=== PATIENT | female | born 1935 | race Caucasian/White ===

== ENCOUNTER 2017-10-21 10:48 | Observation (INO) | payer OTHER ==
--- NOTE | 2017-10-21 11:07 | PDOC ---
History of Present Illness - General Chief Complaint: Pain Stated Complaint: LEFT LEG PAIN Time Seen by Provider: 10/21/17 10:53 History Source: Patient Exam Limitations: No Limitations - History of Present Illness Initial Comments: 10/21/17 11:01 Ms Banerjee is an 82 yo F who presents to the ER via EMS due to difficulty walking She has a h/o Spinal stenosis, Chronic lower extremity DVT, recurrent UTI, PUD, osteoarthritis, spinal stenosis She was admitted to an outside hospital for what is being described as cellulitis and sepsis. She was treated and sent to [facility] She was initially able to stand for short periods of time but was able to participate in seated leg exercises up until this past thursday Two days ago, she began to have severe left knee pain She is now unable to stand, she is unable to bend her knee She denies falls or direct trauma to the leg She denies fevers or chills Since being at the facility she has had 3 utis, was initially treated with Macrobid but now she is reportedly resistant to this and was switched to Keflex PMH: Spinal stenosis, Chronic UTI PSH: Meds: ALL: Asa, Cipro, Codeine, Prednisone Social: Denies drug or tobacco use FH: Non contributory GENERAL/CONSTITUTIONAL: No: fever, chills HEAD, EYES, EARS, NOSE AND THROAT: No: change in vision, ear pain, discharge, sore throat, throat swelling. CARDIOVASCULAR: No: chest pain, lightheadedness RESPIRATORY: No: cough, shortness of breath GASTROINTESTINAL: No: nausea, vomiting, diarrhea, abdominal pain GENITOURINARY: No: dysuria, hematuria, frequency, urgency, flank pain. MUSCULOSKELETAL: No: back pain, neck pain, joint pain, muscle swelling or pain SKIN AND BREASTS: No: lesions, pallor, rash or easy bruising. NEUROLOGIC: No: headache, vertigo, paresthesias, weakness ENDOCRINE: No: unexplained weight gain or loss HEMATOLOGIC/LYMPHATIC: No: anemia, easy bleeding, swelling nodes. GENERAL: The patient is in no acute distress. HEAD: Normal EYES: PERRLA, EOMI, sclera anicteric, conjunctiva clear. ENT: Ears normal, nares patent, oropharynx clear without exudates. Moist mucous membranes. NECK: Normal range of motion, supple without lymphadenopathy, JVD, or masses. LUNGS: Breath sounds equal, clear to auscultation bilaterally. No wheezes, and no crackles. HEART:Regular rate and rhythm, normal S1 and S2, ?KARON aotic position ABDOMEN: Soft, nontender, normoactive bowel sounds. No guarding, no rebound. EXTREMITIES: Pt able to move upper extremities Unable to lift left lower extremity, unable to bend knee Moves toes left leg NEUROLOGICAL: Cranial nerves II through XII grossly intact. Normal speech. No focal neurological deficits. MUSCULOSKELETAL: Severe left knee pain, unable to range left knee, (+) swelling through out the entire leg noted SKIN: No erythema, venous stasis changes noted in bilateral lower extremities 10/21/17 11:07 10/21/17 11:24 Past History - Past Medical History Allergies/Adverse Reactions: Allergies Allergy/AdvReac Type Severity Reaction Status Date / Time adhesive tape Allergy Intermediate Verified 10/21/17 11:10 aspirin Allergy Intermediate Rash Verified 10/21/17 11:05 ciprofloxacin [From Cipro] Allergy Intermediate Itching Verified 10/21/17 11:06 codeine Allergy Intermediate Rash Verified 10/21/17 11:06 pineapple Allergy Intermediate Verified 10/21/17 11:09 prednisone Allergy Intermediate Rash Verified 10/21/17 11:07 Sulfa (Sulfonamide Allergy Intermediate Rash Verified 10/21/17 11:07 Antibiotics) Home Medications: Ambulatory Orders Alprazolam [Xanax] 0.25 mg PO Q6H 10/21/17 Bupropion HCl [Bupropion Xl] 150 mg PO DAILY 10/21/17 Calcium Carb, Citrate/Vit D3 [Calcium + D3 ER Tablet] 1 tab PO DAILY 10/21/17 Cephalexin [Keflex] 500 mg PO BID 10/21/17 Cholecalciferol (Vitamin D3) [Vitamin D3] 5,000 unit PO DAILY 10/21/17 Cyanocobalamin [Vitamin B12 -] 100 mcg PO DAILY 10/21/17 Fentanyl 1 each TD ASDIR 10/21/17 Fexofenadine HCl 180 mg PO DAILY 10/21/17 Gabapentin 600 mg PO BID 10/21/17 Gabapentin 900 mg PO HS 10/21/17 Lactobacillus Acidophilus [Acidophilus] 1 each PO BID 10/21/17 Nystatin Powder [Nystop Powder -] 1 appful ASDIR 10/21/17 Polyethylene Glycol 3350 [Miralax 119 gm Btl -] 1 pack PO BID 10/21/17 Triamcinolone 0.5% Cream [Aristocort 0.5% Cream -] 1 appful BID 10/21/17 Warfarin Na [Coumadin] 2 mg PO DAILY 10/21/17 Warfarin Sodium [Coumadin] 2.5 mg PO DAILY 10/21/17 oxyCODONE SR [Oxycontin] 10 mg PO BID 10/21/17 ED Treatment Course - LABORATORY CBC & Chemistry Diagram: 10/21/17 12:46 10/21/17 12:46 - RADIOLOGY Radiology Studies Ordered: Category Date Time Status CHEST - PA [RAD] Stat Radiology 10/21/17 10:55 Ordered FEMUR-LEFT [RAD] Stat Radiology 10/21/17 10:55 Ordered KNEE 3 POS-LEFT [RAD] Stat Radiology 10/21/17 10:55 Ordered Medical Decision Making - Medical Decision Making 10/21/17 11:27 82 yo F who was admitted to rehab but in the past few days pt has had difficulty ambulating, bearing weight 10/21/17 15:48 Laboratory Tests 10/21/17 10/21/17 10/21/17 11:58 12:46 12:46 WBC 4.9 Hgb 15.5 H Hct 46.0 H Plt Count 164 INR 2.74 H BUN 23 H Creatinine 0.9 Urine Blood Urine Nitrite Ur Leukocyte Esterase 10/21/17 13:14 WBC Hgb Hct Plt Count INR BUN Creatinine Urine Blood Negative Urine Nitrite Negative Ur Leukocyte Esterase Negative Xrays attempted Pt unable to tolerate femur x rays Will place on observation *DC/Admit/Observation/Transfer Diagnosis at time of Disposition: Unable to walk Leg pain Qualifiers: Laterality: left Qualified Code(s): M79.605 - Pain in left leg - Discharge Dispostion Condition at time of disposition: Stable Decision to Admit order: Yes - Referrals - Patient Instructions - Post Discharge Activity
[2017-10-21 12:54] LABS: BASO % 1.1 % (0-2.0); EOS % 3.2 % (0-4.5); HEMOGLOBIN 15.5 GM/dl (10.7-15.3); LYMPH % 23.2 % (8-40); MCH 29.4 pg (25.7-33.7); MCHC 33.7 g/dl (32.0-36.0); MEAN CELL VOLUME 87.1 fl (80-96); MEAN PLT VOLUME 8.4 fl (7.5-11.1); MONO % 11.8 % (3.8-10.2); NEUT % 60.7 % (42.8-82.8); PLATELET COUNT 164 K/MM3 (134-434); RBC 5.29 M/mm3 (3.60-5.2); WHITE BLOOD COUNT 4.9 K/mm3 (4.0-10.8)
[2017-10-21] MEDS ORDERED: ALPRAZolam 0.25 MG TABLET PO PRN (12:54)
--- NOTE | 2017-10-21 12:54 | HP ---
CHIEF COMPLAINT: left lower extremity pain inability to ambulate PCP: Dr Snehal Rome ([facility]) HISTORY OF PRESENT ILLNESS:patient is a 82-year-old obese female, with a past medical history of chronic venous hypertension (idiopathic), depression, anxiety , phelbitis, DVT, chronic urinary tract infection (ecoli), polyneuropathy, spinal stenosis, and peptic ulcer disease. Daughter (Katharine) at bedside. Patient and daughter report left lower extremity cellulitis since July 2017. She was hospitalized for sepsis and cellulitis of the left lower extremity at [facility] and discharged to short-term rehabilitation at [facility]. patient reports ongoing pain to the left lower extremity and the inability to ambulate because she is unable to appear weight on the extremity. patient does report a twisting of the left knee while she was attempting to ambulate out of bed last week which exacerbated the pain. Patient denies falling upon the extremity. patient denies any paresthesia to the extremity. Of note, patient recently was diagnosed with a urinary tract infection ( Escherichia coli) and was started on Keflex 500 mg twice a day. ER course was notable for: (1)chest x-ray no evidence of pulmonary disease (2)WBC 4.9 (3)urinalysis negative leukocytes Recent Travel:none PAST MEDICAL HISTORY:see history of present illness PAST SURGICAL HISTORY:see history of present illness Social History:prior to admission at short-term rehabilitation patient resided at home alone, retired Smoking:none Alcohol:none Drugs: none Family History:noncontributory to this admission Allergies adhesive tape Allergy (Intermediate, Verified 10/21/17 11:10) aspirin Allergy (Intermediate, Verified 10/21/17 11:05) Rash ciprofloxacin [From Cipro] Allergy (Intermediate, Verified 10/21/17 11:06) Itching codeine Allergy (Intermediate, Verified 10/21/17 11:06) Rash pineapple Allergy (Intermediate, Verified 10/21/17 11:09) prednisone Allergy (Intermediate, Verified 10/21/17 11:07) Rash Sulfa (Sulfonamide Antibiotics) Allergy (Intermediate, Verified 10/21/17 11:07) Rash HOME MEDICATIONS: Home Medications Medication Instructions Recorded Alprazolam [Xanax] 0.25 mg PO Q6H 10/21/17 Bupropion HCl [Bupropion Xl] 150 mg PO DAILY 10/21/17 Calcium Carb, Citrate/Vit D3 1 tab PO DAILY 10/21/17 [Calcium + D3 ER Tablet] Cephalexin [Keflex] 500 mg PO BID 10/21/17 Cholecalciferol (Vitamin D3) 5,000 unit PO DAILY 10/21/17 [Vitamin D3] Cyanocobalamin [Vitamin B12 -] 100 mcg PO DAILY 10/21/17 Fentanyl 1 each TD ASDIR 10/21/17 Fexofenadine HCl 180 mg PO DAILY 10/21/17 Gabapentin 600 mg PO BID 10/21/17 Gabapentin 900 mg PO HS 10/21/17 Lactobacillus Acidophilus 1 each PO BID 10/21/17 [Acidophilus] Nystatin Powder [Nystop Powder -] 1 appful ASDIR 10/21/17 Polyethylene Glycol 3350 [Miralax 1 pack PO BID 10/21/17 119 gm Btl -] Triamcinolone 0.5% Cream 1 appful BID 10/21/17 [Aristocort 0.5% Cream -] Warfarin Na [Coumadin] 2 mg PO DAILY 10/21/17 Warfarin Sodium [Coumadin] 2.5 mg PO DAILY 10/21/17 oxyCODONE SR [Oxycontin] 10 mg PO BID 10/21/17 REVIEW OF SYSTEMS CONSTITUTIONAL: Absent: fever, chills, diaphoresis, generalized weakness, malaise, loss of appetite, weight change HEENT: Absent: rhinorrhea, nasal congestion, throat pain, throat swelling, difficulty swallowing, mouth swelling, ear pain, eye pain, visual changes CARDIOVASCULAR: Absent: chest pain, syncope, palpitations, irregular heart rate, lightheadedness , peripheral edema RESPIRATORY: Absent: cough, shortness of breath, dyspnea with exertion, orthopnea, wheezing, stridor, hemoptysis GASTROINTESTINAL: Absent: abdominal pain, abdominal distension, nausea, vomiting, diarrhea, constipation, melena, hematochezia GENITOURINARY: Absent: dysuria, frequency, urgency, hesitancy, hematuria, flank pain, genital pain MUSCULOSKELETAL: present: left lower extremity pain Absent: myalgia, arthralgia, joint swelling, back pain, neck pain SKIN: Absent: rash, itching, pallor HEMATOLOGIC/IMMUNOLOGIC: Absent: easy bleeding, easy bruising, lymphadenopathy, frequent infections ENDOCRINE: Absent: unexplained weight gain, unexplained weight loss, heat intolerance, cold intolerance NEUROLOGIC: Absent: headache, focal weakness or paresthesias, dizziness, unsteady gait, seizure, mental status changes, bladder or bowel incontinence PSYCHIATRIC: Absent: anxiety, depression, suicidal or homicidal ideation, hallucinations. PHYSICAL EXAMINATION Vital Signs - 24 hr 10/21/17 10:49 Temperature 98.7 F Pulse Rate 81 Respiratory 20 Rate Blood Pressure 155/63 O2 Sat by Pulse 97 Oximetry (%) GENERAL: Awake, alert, and fully oriented, in no acute distress. HEAD: Normal with no signs of trauma. EYES: Pupils equal, round and reactive to light, extraocular movements intact, sclera anicteric, conjunctiva clear. No lid lag. EARS, NOSE, THROAT: Ears normal, nares patent, oropharynx clear without exudates. Moist mucous membranes. NECK: Normal range of motion, supple without lymphadenopathy, JVD, or masses. LUNGS: Breath sounds equal, clear to auscultation bilaterally. No wheezes, and no crackles. No accessory muscle use. HEART: Regular rate and rhythm, normal S1 and S2 without murmur, rub or gallop. ABDOMEN: Soft, nontender, not distended, normoactive bowel sounds, no guarding, no rebound, no masses. No hepatomegaly or splenomegaly. MUSCULOSKELETAL: Normal range of motion at all joints. No bony deformities or tenderness. No CVA tenderness. UPPER EXTREMITIES: 2+ pulses, warm, well-perfused. No cyanosis. No clubbing. No peripheral edema. LOWER EXTREMITIES: 2+ pulses, warm, well-perfused. No calf tenderness. No peripheral edema, venous stasis changes to bilateral distal lower extremities LEFT LOWER EXTREMITY: point tenderness to anterior knee, no deformity no erythema noted, less than 3 second capillary refill NEUROLOGICAL: Cranial nerves II-XII intact. Normal speech. Normal gait. PSYCHIATRIC: Cooperative. Good eye contact. Appropriate mood and affect. SKIN: Warm, dry, normal turgor, no rashes or lesions noted, normal capillary refill. ASSESSMENT/PLAN: 1) MS left knee pain - X-ray of left knee reviewedmoderate degenerative changes noted no acute fracture noted. - Oxycodone for severe pain Tylenol for minimal pain continue fentanyl patch patient reports she has taking OxyContin in the past denies any adverse reaction - Appreciate input of orthopedist Dr. Lorenzana - physical therapy evaluation 2) cardiovascular chronic DVT - continue Coumadin home dose, inr is therepeutic 3) chronic urinary tract infection - urinalysis, pending urine culture,patient completed 7 days of keflex - f/u urine culture f/e/n - regular diet - replete electrolytes prn ppx - coumadin (therepeutic) - physical therapy evaluation - scd/baljinder - oob - pepcid dispo: pt requires obsv admission Visit type - Emergency Visit Emergency Visit: Yes ED Registration Date: 10/21/17 Care time: The patient presented to the Emergency Department on the above date and was hospitalized for further evaluation of their emergent condition. - New Patient This patient is new to me today: Yes Date on this admission: 10/21/17 - Critical Care Critical Care patient: No Hospitalist Screening - Colonoscopy Questionnaire Colonoscopy Questionnaire: Colonoscopy Questionnaire - Patient: 50 - 75 years old and never had a screening colonoscopy: No History of colon or rectal polyps, or CA: No History of IBD, Crohn's disease or UC: No History of abdominal radiation therapy as a child: No - Relative: 1 with colon or rectal CA, or polyps at age 60 or younger: No Colon or rectal CA diagnosed at age 45 or younger: No Multiple relatives with colon or rectal CA: No - Outcome: Screening Result: Negative Screen
[2017-10-21] MEDS ORDERED: NYSTATIN POWDER 100,000 UNITS/GM - 15 GM TOPICAL POWDER TP SCH (13:00)
[2017-10-21] MEDS ORDERED: FENTANYL TD SCH (13:00)
[2017-10-21 13:02] LABS: INR 2.74 (0.82-1.09); PROTHROMBIN TIME (PATIENT) 30.1 SEC (10.2-13.0)
[2017-10-21 13:11] LABS: ALBUMIN 3.3 g/dl (3.5-5.0); ALK PHOS 96 U/L (32-92); ANION GAP 6 (8-16); BILIRUBIN,TOTAL 0.6 mg/dl (0.2-1.0); BLOOD UREA NITROGEN 23 mg/dl (7-18); CALCIUM 9.3 mg/dl (8.4-10.2); CHLORIDE 101 mmol/L (98-107); CO2 31 mmol/L (22-28); CREATININE 0.9 mg/dl (0.6-1.3); GLUCOSE,RANDOM 107 mg/dl (74-106); POTASSIUM 4.1 mmol/L (3.5-5.1); SGOT/AST 21 U/L (10-42); SGPT/ALT 16 U/L (10-40); SODIUM 138 mmol/L (136-145); TOT PROT 6.5 g/dl (6.4-8.3); URIC ACID 6.3 mg/dl (2.6-7.2)
[2017-10-21 13:46] LABS: ERYTHROCYTE SEDIMENTATION RATE 16 mm/hr (0-30)
[2017-10-21] MEDS ORDERED: oxyCODONE HCL 5 MG TABLET PO PRN ×2 (14:03→22:23)
[2017-10-21] MEDS ORDERED: ACETAMINOPHEN 325 MG TABLET (FP) PO PRN (14:04)
[2017-10-21] MEDS ORDERED: FENTANYL PATCH WASTE TD PRN (14:18)
[2017-10-21] MEDS ORDERED: DOCUSATE SODIUM 100 MG CAPSULE (FP) PO PRN (14:18)
[2017-10-21 14:20] LABS: URINE BILIRUBIN Negative (NEGATIVE); URINE COLOR Amber; URINE GLUCOSE (UA) Negative (NEGATIVE); URINE KETONE Negative (NEGATIVE); URINE LEUK ESTERASE Negative (NEGATIVE); URINE NITRITE Negative (NEGATIVE); URINE PROTEIN Negative (NEGATIVE); URINE UROBILINOGEN 0.2 (0.2-1.0)
[2017-10-21 14:21] LABS: URINE APPEARANCE SL CLOUDY
[2017-10-21] MEDS ORDERED: fentaNYL 75mcg/hr PATCH.TD72 TD SCH (14:30)
[2017-10-21 16:13] VITALS: BMI 50.3
[2017-10-21] MEDS ORDERED: WARFARIN NA 2.5 MG TABLET (FP) PO ONE (18:00)
[2017-10-21] MEDS: WARFARIN NA 2 MG TABLET (UD) PO SCH (18:45)
[2017-10-21] MEDS: WARFARIN NA 2.5 MG TABLET (FP) PO SCH (18:45)
--- NOTE | 2017-10-21 22:24 | CONSULT ---
Consult - text type - Consultation Consultation Note: 82yo female with severe left knee OA, severe pain and ambulatory dysfunction for ~2 months worsening over the last 2 weeks until she was unable to ambulate. On warfarin for hx of DVT. Chart reviewed. Pt seen and examined. AVSS Selected Entries 10/21/17 10/21/17 22:00 22:35 Temperature 98.1 F Pulse Rate 74 Respiratory 19 Rate Blood Pressure 123/57 O2 Sat by Pulse 95 Oximetry (%) Oxygen Delivery Room Air Method Laboratory Tests 10/21/17 10/21/17 10/21/17 11:58 12:46 12:46 WBC 4.9 Hgb 15.5 H Hct 46.0 H Plt Count 164 ESR 16 PT with INR 30.1 H INR 2.74 H Sodium 138 Potassium 4.1 Chloride 101 Carbon Dioxide 31 H Anion Gap 6 L BUN 23 H Creatinine 0.9 Random Glucose 107 H C-Reactive Protein 0.4 H Gen: NAD, AAO LLE: skin intact, no cuts/abrasions. Chronic distal venous stasis changes. No severe joint effusion. Very stiff with palpable crepitus and severe pain with attempted ROM. Not TTP. No erythema or evidence of infection. No ligamentous laxity. NVID XR L knee - severe tricompartmental osteoarthritis A/P severe left knee OA, deconditioning 1. No evidence of septic joint or gouty attack. 2. After sterile skin preparation, the left knee was injected with lidocaine, marcaine, and 30mg toradol. The pt tolerated the procedure well. 3. Allergic to steroids. 4. PT/OOB - WBAT LLE 5. Recommend consult Dr. Sutton for evaluation of deconditioning. Possible component of spinal stenosis?
[2017-10-21] MEDS: POLYETHYLENE GLYCOL 3350 119 GM BTL PO SCH (22:25)
[2017-10-21] MEDS: CALCIUM (OYSTER SHELL) 500 MG TABLET (FP) PO SCH (22:26)
[2017-10-21] MEDS: GABAPENTIN 300 MG CAPSULE (FP) PO SCH (22:26)
[2017-10-21] MEDS: LACTOBACILLUS ACIDOPHILUS 1 TABLET PO SCH (22:26)
[2017-10-21] MEDS: FAMOTIDINE 20 MG TABLET PO SCH (22:27)
[2017-10-21] MEDS ORDERED: ACETAMINOPHEN 325 MG TABLET (FP) PO SCH ×2 (22:30→22:31)
[2017-10-21] MEDS ORDERED: traMADol HCL 50 MG TABLET PO SCH (22:30)
[2017-10-22] MEDS: TRIAMCINOLONE ACET 0.5% CREAM 15 GM TUBE TP SCH ×2 (00:17→22:05)
[2017-10-22] MEDS: traMADol HCL 50 MG TABLET PO SCH ×3 (00:18→12:50)
[2017-10-22] MEDS: GABAPENTIN 300 MG CAPSULE (FP) PO SCH ×4 (00:18→21:58)
[2017-10-22] MEDS: ACETAMINOPHEN 325 MG TABLET (FP) PO SCH ×2 (06:42→12:50)
--- NOTE | 2017-10-22 06:49 | PN ---
Physical Exam: SUBJECTIVE: Patient seen and examined, patient reports improvement of left knee pain after injection of lidocaine and Marcaine and Toradol by orthopedist Dr. Lorenzana, yesterday October 21, 2017. she reports being able to move the knee w/o pain. OBJECTIVE:patient is a 82-year-old obese female, with a past medical history of chronic venous hypertension (idiopathic), depression, anxiety, phelbitis, DVT, chronic urinary tract infection (ecoli), polyneuropathy, spinal stenosis, and peptic ulcer disease. she was admitted from the emergency department to observation for emergent condition Vital Signs Period Temp Pulse Resp BP Sys/Hair Pulse Ox Last 24 Hr 97.5 F-98.7 F 66-81 18-20 123-155/45-90 95-99 GENERAL: Awake, alert, and fully oriented, in no acute distress. HEAD: Normal with no signs of trauma. EYES: Pupils equal, round and reactive to light, extraocular movements intact, sclera anicteric, conjunctiva clear. No lid lag. EARS, NOSE, THROAT: Ears normal, nares patent, oropharynx clear without exudates. Moist mucous membranes. NECK: Normal range of motion, supple without lymphadenopathy, JVD, or masses. LUNGS: Breath sounds equal, clear to auscultation bilaterally. No wheezes, and no crackles. No accessory muscle use. HEART: Regular rate and rhythm, normal S1 and S2 without murmur, rub or gallop. ABDOMEN: Soft, nontender, not distended, normoactive bowel sounds, no guarding, no rebound, no masses. No hepatomegaly or splenomegaly. MUSCULOSKELETAL: Normal range of motion at all joints. No bony deformities or tenderness. No CVA tenderness. UPPER EXTREMITIES: 2+ pulses, warm, well-perfused. No cyanosis. No clubbing. No peripheral edema. LOWER EXTREMITIES: 2+ pulses, warm, well-perfused. No calf tenderness. No peripheral edema, venous stasis changes to bilateral distal lowerextremities right lower extremity, pain upon range of motion NEUROLOGICAL: Cranial nerves II-XII intact. Normal speech. Normal gait. PSYCHIATRIC: Cooperative. Good eye contact. Appropriate mood and affect. SKIN: Warm, dry, normal turgor, no rashes or lesions noted, normal capillary refill. Laboratory Results - last 24 hr 10/21/17 10/21/17 10/21/17 11:58 12:46 12:46 WBC 4.9 RBC 5.29 H Hgb 15.5 H Hct 46.0 H MCV 87.1 MCH 29.4 MCHC 33.7 RDW 13.0 Plt Count 164 MPV 8.4 Absolute Neuts (auto) 2.9 Neutrophils % 60.7 Lymphocytes % 23.2 Monocytes % 11.8 H Eosinophils % 3.2 Basophils % 1.1 ESR 16 PT with INR 30.1 H INR 2.74 H Sodium 138 Potassium 4.1 Chloride 101 Carbon Dioxide 31 H Anion Gap 6 L BUN 23 H Creatinine 0.9 Creat Clearance w eGFR 59.80 Random Glucose 107 H Uric Acid 6.3 Calcium 9.3 Total Bilirubin 0.6 AST 21 ALT 16 Alkaline Phosphatase 96 H C-Reactive Protein 0.4 H Total Protein 6.5 Albumin 3.3 L Urine Color Urine Appearance Urine pH Ur Specific [place] Urine Protein Urine Glucose (UA) Urine Ketones Urine Blood Urine Nitrite Urine Bilirubin Urine Urobilinogen Ur Leukocyte Esterase 10/21/17 10/21/17 13:14 14:09 WBC RBC Hgb Hct MCV MCH MCHC RDW Plt Count MPV Absolute Neuts (auto) Neutrophils % Lymphocytes % Monocytes % Eosinophils % Basophils % ESR PT with INR INR Sodium Potassium Chloride Carbon Dioxide Anion Gap BUN Creatinine Creat Clearance w eGFR Random Glucose Uric Acid 6.3 Calcium Total Bilirubin AST ALT Alkaline Phosphatase C-Reactive Protein Total Protein Albumin Urine Color [place] Urine Appearance Sl cloudy Urine pH 7.0 Ur Specific [place] 1.010 Urine Protein Negative Urine Glucose (UA) Negative Urine Ketones Negative Urine Blood Negative Urine Nitrite Negative Urine Bilirubin Negative Urine Urobilinogen 0.2 Ur Leukocyte Esterase Negative Active Medications Generic Name Dose Route Start Last Admin Trade Name Freq PRN Reason Stop Dose Admin Acetaminophen 650 mg 10/22/17 06:00 10/22/17 06:42 Tylenol - PO 650 mg Q6HPO JARED Administration Alprazolam 0.25 mg 10/21/17 12:54 Xanax - PO Q6H PRN ANXIETY Bupropion HCl 150 mg 10/22/17 10:00 Wellbutrin Xl - PO DAILY JARED Calcium Carbonate 500 mg 10/21/17 22:00 10/21/17 22:26 Os-Hever 500mg - PO 500 mg BID JARED Administration Cholecalciferol 5,000 unit 10/22/17 10:00 Vitamin D3 - PO DAILY [facility] Cyanocobalamin 100 mcg 10/22/17 10:00 Vitamin B12 - PO DAILY [facility] Docusate Sodium 100 mg 10/21/17 14:18 Colace - PO Q8H PRN CONSTIPATION Famotidine 20 mg 10/21/17 22:00 10/21/17 22:27 Pepcid - PO 20 mg BID [facility] Administration Fentanyl 1 patch 10/21/17 14:30 10/21/17 15:16 Duragesic 75mcg Patch - TD 1 patch Q72H JARED Administration Gabapentin 600 mg 10/21/17 22:00 10/22/17 00:18 Neurontin - PO Not Given BID [facility] Gabapentin 900 mg 10/21/17 22:00 10/21/17 22:26 Neurontin - PO 900 mg HS [facility] Administration Lactobacillus Acidophilus 1 tab 10/21/17 22:00 10/21/17 22:26 Bacid - PO 1 tab BID [facility] Administration Loratadine 10 mg 10/22/17 10:00 Claritin - PO DAILY [facility] Miscellaneous 1 each 10/21/17 14:18 Duragesic Patch Waste TD PRN PRN PAIN Nystatin 1 applic 10/22/17 10:00 Nystop Powder - TP DAILY [facility] Oxycodone HCl 5 mg 10/21/17 22:23 Roxicodone - PO 10/24/17 22:23 Q3H PRN PAIN LEVEL 1-5 Oxycodone HCl 10 mg 10/21/17 22:23 Roxicodone - PO 10/24/17 22:23 Q3H PRN PAIN LEVEL 6-10 Polyethylene Glycol 17 gm 10/21/17 22:00 10/21/17 22:25 Miralax (For Daily Use) - PO Not Given BID [facility] Tramadol HCl 50 mg 10/21/17 22:30 10/22/17 06:42 Ultram - PO 50 mg Q6HPO [facility] Administration Triamcinolone Acetonide 1 applic 10/21/17 22:00 10/22/17 00:17 Aristocort 0.5% Cream - TP Not Given BID [facility] Warfarin Sodium 2 mg 10/21/17 18:00 10/21/17 18:45 Coumadin - PO 2 mg [id number] [facility] Administration Warfarin Sodium 2.5 mg 10/21/17 18:00 10/21/17 18:45 Coumadin - PO 2.5 mg [id number] JARED Administration imaging X-ray of left knee: extensive arthritic changes noted Chest x-ray: No infiltration or effusion is noted ASSESSMENT/PLAN: 1) MS bilateral degenerative joint disease - patient evaluated by orthopedist Dr Lorenzana yesterday 10/21/2017, injection of lidocaine and Marcaine and Toradol to left knee completed by orthopedist patient reports improvement of left lower extremity pain - Continue oxycodone Ultram and fentanyl patch for pain - appreciate input of Physiatry Dr. Zepeda - Appreciate input of orthopedist Dr. Lorenzana - physical therapy evaluation 2) cardiovascular chronic DVT - continue Coumadin home dose, inr is therepeutic 3) chronic urinary tract infection - urinalysis no leukocytes noted, pending urine culture,patient completed 7 days of keflex - f/u urine culture f/e/n - regular diet - replete electrolytes prn ppx - coumadin (therepeutic) - physical therapy evaluation - scd/baljinder - oob - pepcid dispo: pt requires obsv admission Visit type - Emergency Visit Emergency Visit: Yes ED Registration Date: 10/21/17 Care time: The patient presented to the Emergency Department on the above date and was hospitalized for further evaluation of their emergent condition. - New Patient This patient is new to me today: No - Critical Care Critical Care patient: No - Discharge Referral Referred to [facility] Med [facility] No
[2017-10-22 08:57] LABS: ANION GAP 5 (8-16); BLOOD UREA NITROGEN 28 mg/dl (7-18); CALCIUM 9.4 mg/dl (8.4-10.2); CHLORIDE 101 mmol/L (98-107); CO2 31 mmol/L (22-28); CREATININE 1.2 mg/dl (0.6-1.3); GLUCOSE,RANDOM 106 mg/dl (74-106); MAGNESIUM 2.2 mg/dL (1.8-2.4); PHOSPHOROUS 4.5 mg/dl (2.5-4.6); POTASSIUM 4.5 mmol/L (3.5-5.1); SODIUM 137 mmol/L (136-145)
[2017-10-22 09:16] LABS: BASO % 0.9 % (0-2.0); HEMATOCRIT 42.3 % (32.4-45.2); LYMPH % 27.7 % (8-40); MCHC 33.2 g/dl (32.0-36.0); MEAN CELL VOLUME 87.6 fl (80-96); MEAN PLT VOLUME 8.3 fl (7.5-11.1); MONO % 14.8 % (3.8-10.2); NEUT % 52.6 % (42.8-82.8); PLATELET COUNT 145 K/MM3 (134-434); RBC 4.83 M/mm3 (3.60-5.2); RDW 13.2 % (11.6-15.6); WHITE BLOOD COUNT 4.1 K/mm3 (4.0-10.8)
[2017-10-22] MEDS ORDERED: PATIENT'S OWN MEDICATION (NON-FORMULARY) (Calcium Carb, Citrate/Vit D3 [Calcium + D3 Er Ta PO SCH (10:00)
[2017-10-22] MEDS: NYSTATIN POWDER 100,000 UNITS/GM - 15 GM TOPICAL POWDER TP SCH (10:20)
[2017-10-22] MEDS: LORATADINE 10 MG TABLET PO SCH (10:52)
[2017-10-22] MEDS: LACTOBACILLUS ACIDOPHILUS 1 TABLET PO SCH ×2 (10:52→21:59)
[2017-10-22] MEDS: POLYETHYLENE GLYCOL 3350 119 GM BTL PO SCH ×2 (10:53→22:09)
[2017-10-22] MEDS: CALCIUM (OYSTER SHELL) 500 MG TABLET (FP) PO SCH ×2 (10:54→21:59)
[2017-10-22] MEDS: FAMOTIDINE 20 MG TABLET PO SCH ×2 (10:54→21:59)
[2017-10-22] MEDS: CYANOCOBALAMIN (VITAMIN B-12) 100 MCG TABLET PO SCH (10:55)
[2017-10-22] MEDS: CHOLECALCIFEROL (VITAMIN D3) 1,000 UNIT TABLET (FP) PO SCH (10:55)
[2017-10-22] MEDS: oxyCODONE HCL 5 MG TABLET PO PRN ×2 (10:57→22:08)
--- NOTE | 2017-10-22 14:25 | EKG ---
Test Reason : Blood Pressure : / mmHG Vent. Rate : 084 BPM Atrial Rate : 084 BPM P-R Int : 186 ms QRS Dur : 090 ms QT Int : 372 ms P-R-T Axes : 040 -13 064 degrees QTc Int : 439 ms NORMAL SINUS RHYTHM NORMAL ECG NO PREVIOUS ECGS AVAILABLE Confirmed by ROSA BLACK MD ([id number]) on 10/22/2017 2:25:06 PM Referred By: RINA Confirmed By:ROSA BLACK MD
[2017-10-22] MEDS: WARFARIN NA 2.5 MG TABLET (FP) PO SCH (17:34)
[2017-10-22] MEDS: WARFARIN NA 2 MG TABLET (UD) PO SCH (17:34)
--- NOTE | 2017-10-22 21:15 | CONS ---
DATE OF CONSULTATION: 10/22/2017 REFERRING PHYSICIAN: Kit Vickers MD HISTORY OF PRESENT ILLNESS: The patient is an 82-year-old woman with extensive past medical history, which includes bilateral DVT, polyneuropathy, spinal stenosis, who was transferred from [facility] to [facility] with inability to ambulate. Patient apparently had been hospitalized in another institution, [facility] with sepsis and cellulitis from August 22 to about August 27. She was treated with IV antibiotics and transferred to [facility] for short-term rehab. She apparently was doing well, making progress, until the third week of September when she recalls trying to transfer into bed a different way than she previously had. Her left leg buckled or twisted and sine this time she has had increasing inability to ambulate. She was brought to [facility] and found to have a urinary tract infection at least recently. On admission, she underwent x-rays, which demonstrated osteoarthritis of the knees and hips. There were also vascular calcifications noted in the left femur. Patient was seen in orthopedic consultation by Dr. Alfonso Lorenzana and given a Toradol injection in her left knee, which has helped. She was seen by physical therapy and attempted to transfer, but now is having difficulty moving the right lower extremity. Patient has no complaints of upper extremity weakness, numbness, or tingling and was referred for rehabilitation and evaluation. She is also on pain medication and chronically on Warfarin for deep venous thrombosis, which occurred many years ago. PAST MEDICAL AND SURGICAL HISTORY: Review of past medical and surgical history , as above. She also has a history of hypertension, depression, phlebitis, anxiety, chronic urinary tract infection, peptic ulcer disease, increased BMI. SOCIAL HISTORY: Per the patient and her daughter, she was living by herself independently in an apartment. No steps to enter and walking as recently as mid to late September with assistance. She does not smoke tobacco or drink alcohol. REVIEW OF SYSTEMS: No headache. No lightheadedness or dizziness. No blurry vision or double vision. No nausea or vomiting, difficulty swallowing, difficulty chewing. No chest pain, shortness of breath, dyspnea on exertion, night orthopnea, wheezing. No abdominal discomfort. No distention. No bowel or bladder incontinence or retention. No frequency currently. She does have chronic skin changes in her lower extremities distally, which are hyperpigmented and slight swelling as well as some back pain at times, but no current numbness or tingling in her lower extremities. Pain is more in the right knee than the left knee. PHYSICAL EXAMINATION: General: The patient is an overweight woman, seen lying in bed. She is awake, alert, and oriented. She is cooperative with examination and seems to have good insight into her medical condition. HEENT: She is normocephalic and atraumatic. Her extraocular muscles appear intact. She has no obvious facial weakness. No oral ulcers. Poor dentition. Dry mucous membranes. Neck: Supple without any palpable spasm. Extremities: She has dysvascular changes in both lower extremities with hyperpigmentation and trace edema. No advanced pitting edema. No calf tenderness that is isolated. No other skin rash noted. Neuromuscular: She is awake, alert, oriented x3. Cranial nerves II-XII are grossly intact. Good strength and range in the upper extremities with some arthritic changes in the hands and mild weakness in hotel attendant, but otherwise good range. Normal sensation to pinprick throughout the upper and lower extremities. She is able to move the left lower extremity including the knee much better than the right lower extremity with severe pain noted in the right knee particularly, but fairly good dorsiflexion and plantarflexion. She has crepitus in the left knee, but the right knee is difficult to examine due to her level of pain. Negative straight leg raise test on the left. Unable to evaluate on the right. BLOOD WORK: Included a CBC on October 21: WBC is 4.9, hemoglobin 15.5, platelet count 164, INR 2.74. Her chemistry was within normal limits with sodium of 138, potassium 4.1, chloride 101, CO2 31, slightly elevated. BUN slightly elevated at 23, creatinine 0.9. C-reactive protein 0.4. OVERALL IMPRESSION: 1. Deficit of mobility and activities of daily living, multifactorial. 2. Severe left knee osteoarthritis and probable right knee osteoarthritis. 3. Left hip osteoarthritis. 4. Underlying lumbar canal stenosis without any current radiculopathy. 5. 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 6. Anticoagulated on warfarin. 7. History of polyneuropathy by history, but not on examination. 8. Hypertension. 9. Elevated body mass index. 10. Chronic urinary tract infection. 11. Elevated risk for constipation. 12. Elevated risk for skin breakdown. PLAN/SUGGESTIONS: 1. Follow up with Dr. Lorenzana for possible Toradol injection in the right knee. 2. Patient shown exercise to start in the bed including isometric quadriceps strengthening. 3. Continue physical therapy at the bedside and out of bed to chair if able. 4. Pain control. 5. On warfarin. No further DVT prophylaxis needed. 6. Bowel regimen. Monitor for constipation. 7. Skin precautions. Avoid heel and sacral pressure. Monitor for erythema or breakdown. 8. Return to short-term rehab once medically stabilized and pain controlled. Thank you for this referral. REGINO FLANAGAN M.D. [id number] MTDD
[2017-10-23] MEDS: ACETAMINOPHEN 325 MG TABLET (FP) PO SCH ×5 (00:19→17:21)
[2017-10-23] MEDS: traMADol HCL 50 MG TABLET PO SCH ×5 (00:19→17:18)
--- NOTE | 2017-10-23 09:11 | PN ---
Physical Exam: SUBJECTIVE: Patient seen and examined, sitting up in bed, eating breakfast, tolerating meals, denies any tactile fevers. OBJECTIVE: patient is a 82-year-old obese female, with a past medical history of chronic venous hypertension (idiopathic), depression, anxiety, phelbitis, DVT, chronic urinary tract infection (ecoli), polyneuropathy, spinal stenosis, and peptic ulcer disease. she was admitted from the emergency department to observation for emergent condition Vital Signs Period Temp Pulse Resp BP Sys/Hair Pulse Ox Last 24 Hr 97.4 F-97.6 F 66-76 18-18 129-130/51-61 93-96 GENERAL: The patient is awake, alert, and fully oriented, in no acute distress. HEAD: Normal with no signs of trauma. EYES: PERRL, extraocular movements intact, sclera anicteric, conjunctiva clear. No ptosis. ENT: Ears normal, nares patent, oropharynx clear without exudates, moist mucous membranes. NECK: Trachea midline, full range of motion, supple. LUNGS: Breath sounds equal, clear to auscultation bilaterally, no wheezes, no crackles, no accessory muscle use. HEART: Regular rate and rhythm, S1, S2 without murmur, rub or gallop. ABDOMEN: Soft, nontender, nondistended, normoactive bowel sounds, no guarding, no rebound, no hepatosplenomegaly, no masses. EXTREMITIES: 2+ pulses, warm, well-perfused, no edema. right lower extremity, point tenderness to the anterior patella, pain Upon range of motion no joint laxity noted, less than 3 second capillary refill NEUROLOGICAL: Cranial nerves II through XII grossly intact. Normal speech, gait not observed. PSYCH: Normal mood, normal affect. SKIN: Warm, dry, normal turgor, no rashes or lesions noted Laboratory Results - last 24 hr 10/22/17 10/22/17 07:35 07:35 WBC 4.1 RBC 4.83 Hgb 14.0 Hct 42.3 MCV 87.6 MCH 29.0 MCHC 33.2 RDW 13.2 Plt Count 145 MPV 8.3 Absolute Neuts (auto) 2.2 Neutrophils % 52.6 Lymphocytes % 27.7 Monocytes % 14.8 H Eosinophils % 4.0 Basophils % 0.9 Sodium 137 Potassium 4.5 Chloride 101 Carbon Dioxide 31 H Anion Gap 5 L BUN 28 H Creatinine 1.2 Creat Clearance w eGFR 42.90 Random Glucose 106 Calcium 9.4 Phosphorus 4.5 Magnesium 2.2 Active Medications Generic Name Dose Route Start Last Admin Trade Name Freq PRN Reason Stop Dose Admin Acetaminophen 650 mg 10/22/17 06:00 10/23/17 06:15 Tylenol - PO 650 mg Q6HPO JARED Administration Alprazolam 0.25 mg 10/21/17 12:54 Xanax - PO Q6H PRN ANXIETY Bupropion HCl 150 mg 10/22/17 10:00 10/22/17 10:56 Wellbutrin Xl - PO 150 mg DAILY JARED Administration Calcium Carbonate 500 mg 10/21/17 22:00 10/22/17 21:59 Os-Hever 500mg - PO 500 mg BID JARED Administration Cholecalciferol 5,000 unit 10/22/17 10:00 10/22/17 10:55 Vitamin D3 - PO 5,000 unit DAILY JARED Administration Cyanocobalamin 100 mcg 10/22/17 10:00 10/22/17 10:55 Vitamin B12 - PO 100 mcg DAILY JARED Administration Docusate Sodium 100 mg 10/21/17 14:18 Colace - PO Q8H PRN CONSTIPATION Famotidine 20 mg 10/21/17 22:00 10/22/17 21:59 Pepcid - PO 20 mg BID JARED Administration Fentanyl 1 patch 10/21/17 14:30 10/21/17 15:16 Duragesic 75mcg Patch - TD 1 patch Q72H JARED Administration Gabapentin 600 mg 10/21/17 22:00 10/22/17 21:58 Neurontin - PO 600 mg BID JARED Administration Gabapentin 900 mg 10/21/17 22:00 10/22/17 21:58 Neurontin - PO 900 mg HS JARED Administration Lactobacillus Acidophilus 1 tab 10/21/17 22:00 10/22/17 21:59 Bacid - PO 1 tab BID JARED Administration Loratadine 10 mg 10/22/17 10:00 10/22/17 10:52 Claritin - PO 10 mg DAILY JARED Administration Miscellaneous 1 each 10/21/17 14:18 Duragesic Patch Waste TD PRN PRN PAIN Nystatin 1 applic 10/22/17 10:00 10/22/17 10:20 Nystop Powder - TP 1 applic DAILY JARED Administration Oxycodone HCl 5 mg 10/21/17 22:23 Roxicodone - PO 10/24/17 22:23 Q3H PRN PAIN LEVEL 1-5 Oxycodone HCl 10 mg 10/21/17 22:23 10/22/17 22:08 Roxicodone - PO 10/24/17 22:23 10 mg Q3H PRN Administration PAIN LEVEL 6-10 Polyethylene Glycol 17 gm 10/21/17 22:00 10/22/17 22:09 Miralax (For Daily Use) - PO Not Given BID JARED Tramadol HCl 50 mg 10/21/17 22:30 10/23/17 06:15 Ultram - PO 50 mg Q6HPO JARED Administration Triamcinolone Acetonide 1 applic 10/21/17 22:00 10/22/17 22:05 Aristocort 0.5% Cream - TP Not Given BID JARED Warfarin Sodium 2 mg 10/21/17 18:00 10/22/17 17:34 Coumadin - PO 2 mg [id number] JARED Administration Warfarin Sodium 2.5 mg 10/21/17 18:00 10/22/17 17:34 Coumadin - PO 2.5 mg [id number] JARED Administration Microbiology 10/21/17 13:14 Urine - Urine Clean Catch Urine Culture - Final Contaminated: Please Repeat 10/21/17 12:46 Blood - Peripheral Venous Blood Culture - Preliminary NO GROWTH OBTAINED AFTER 24 HOURS, INCUBATION TO CONTINUE FOR 4 DAYS. 10/21/17 12:46 Blood - Peripheral Venous Blood Culture - Preliminary NO GROWTH OBTAINED AFTER 24 HOURS, INCUBATION TO CONTINUE FOR 4 DAYS. ASSESSMENT/PLAN: 1) MS bilateral degenerative joint disease - patient evaluated by orthopedist Dr Lorenzana yesterday 10/21/2017, injection of lidocaine and Marcaine and Toradol to left knee completed by orthopedist however , patient reports pain to right knee unable to bear weight upon the extremity, appreciate ortho ([place]) input - Continue oxycodone Ultram and fentanyl patch for pain - appreciate input of Physiatry Dr. Zepeda - orthopedist Dr. Lorenzana, consulted and following - physical therapy evaluation 2) cardiovascular chronic DVT - continue Coumadin home dose, inr is therepeutic 3) chronic urinary tract infection - urinalysis no leukocytes noted, pending urine culture,patient completed 7 days of keflex - f/u urine culture f/e/n - regular diet - replete electrolytes prn ppx - coumadin (therepeutic) - physical therapy evaluation - scd/baljinder - oob - pepcid dispo: pt requires obsv admission Visit type - Emergency Visit Emergency Visit: Yes ED Registration Date: 10/21/17 Care time: The patient presented to the Emergency Department on the above date and was hospitalized for further evaluation of their emergent condition. - New Patient This patient is new to me today: No - Critical Care Critical Care patient: No - Discharge Referral Referred to [facility] Med P.C.: No
[2017-10-23] MEDS ORDERED: PT OWN MED DRAWER 7, Y5N ONE ×2 (09:45→21:50)
--- NOTE | 2017-10-23 09:56 | PN ---
Progress Note (short form) - Note Progress Note: ID Consult dictated Observe off antibiotics
[2017-10-23 10:21] LABS: INR 2.75 (0.82-1.09); PROTHROMBIN TIME (PATIENT) 30.2 SEC (10.2-13.0)
[2017-10-23] MEDS: GABAPENTIN 300 MG CAPSULE (FP) PO SCH ×3 (10:22→21:54)
[2017-10-23] MEDS: FAMOTIDINE 20 MG TABLET PO SCH ×2 (10:23→21:54)
[2017-10-23] MEDS: CHOLECALCIFEROL (VITAMIN D3) 1,000 UNIT TABLET (FP) PO SCH (10:23)
[2017-10-23] MEDS: CYANOCOBALAMIN (VITAMIN B-12) 100 MCG TABLET PO SCH (10:23)
[2017-10-23] MEDS: LORATADINE 10 MG TABLET PO SCH (10:23)
[2017-10-23] MEDS: CALCIUM (OYSTER SHELL) 500 MG TABLET (FP) PO SCH ×2 (10:23→21:54)
[2017-10-23 10:24] LABS: BASO % 1.1 % (0-2.0); EOS % 4.7 % (0-4.5); HEMATOCRIT 40.8 % (32.4-45.2); HEMOGLOBIN 13.8 GM/dl (10.7-15.3); LYMPH % 23.6 % (8-40); MCH 29.4 pg (25.7-33.7); MCHC 33.8 g/dl (32.0-36.0); MEAN CELL VOLUME 86.9 fl (80-96); MEAN PLT VOLUME 8.2 fl (7.5-11.1); MONO % 10.2 % (3.8-10.2); NEUT % 60.4 % (42.8-82.8); PLATELET COUNT 150 K/MM3 (134-434); RDW 13.2 % (11.6-15.6); WHITE BLOOD COUNT 4.5 K/mm3 (4.0-10.8)
[2017-10-23] MEDS: LACTOBACILLUS ACIDOPHILUS 1 TABLET PO SCH ×2 (10:24→21:58)
[2017-10-23] MEDS: POLYETHYLENE GLYCOL 3350 119 GM BTL PO SCH ×2 (10:26→21:59)
[2017-10-23] MEDS: NYSTATIN POWDER 100,000 UNITS/GM - 15 GM TOPICAL POWDER TP SCH (10:27)
[2017-10-23] MEDS: TRIAMCINOLONE ACET 0.5% CREAM 15 GM TUBE TP SCH ×3 (10:27→21:53)
[2017-10-23 10:43] LABS: ANION GAP 5 (8-16); BLOOD UREA NITROGEN 31 mg/dl (7-18); CALCIUM 9.3 mg/dl (8.4-10.2); CHLORIDE 102 mmol/L (98-107); CO2 31 mmol/L (22-28); CREATININE 1.1 mg/dl (0.6-1.3); GLUCOSE,RANDOM 119 mg/dl (74-106); MAGNESIUM 2.1 mg/dL (1.8-2.4); PHOSPHOROUS 4.3 mg/dl (2.5-4.6); POTASSIUM 4.8 mmol/L (3.5-5.1); SODIUM 138 mmol/L (136-145)
--- NOTE | 2017-10-23 11:21 | CONS ---
DATE OF CONSULTATION: DATE OF DICTATION: 10/23/2017 HISTORY: The patient is an 82-year-old female with a history of morbid obesity, chronic venostasis, dermatitis lower extremities evaluated for urinary tract infection and cellulitis. She was admitted to the hospital on October 21, 2017 with difficulty ambulating and left knee pain. She was admitted and treated for exacerbation of chronic degenerative joint disease. She had been on Keflex for a urinary tract infection as an outpatient. At the present time, she denies any urinary tract symptoms. She denies any dysuria or hematuria. No complaints of suprapubic or flank pain. She has had a history of cellulitis of the left lower extremity dating back several months. At the present time, she denies any increased erythema or tenderness of the distal lower extremities. No fever or chills. PAST MEDICAL HISTORY: Positive for spinal stenosis, osteoarthritis, DVT, history of chronic urinary tract infections, peripheral vascular disease, chronic venostasis, dermatitis. ALLERGIES: ASPIRIN, CIPROFLOXACIN, SULFA, CODEINE, PREDNISONE. SOCIAL HISTORY: Former smoker. SYSTEMS REVIEW: Neurologic: No loss of consciousness, seizure activity, focal weakness. Cardiac: Negative chest pain or palpitations. Respiratory: Negative cough or sputum production. Gastrointestinal: Negative vomiting or diarrhea. Genitourinary: As per HPI. LABORATORY DATA: White count 4.1, hematocrit 42.3, platelet count 145, BUN 28, creatinine 1.2. Urinalysis negative leukocyte esterase. Blood and urine cultures are pending. PHYSICAL EXAMINATION: General: She is morbidly obese in bed. Vital Signs: Temperature 97.5, blood pressure 130/90, pulse 66 and regular, respirations 20 per minute. HEENT: Sclerae anicteric. Heart: Sounds S1, S2. Lungs: Clear. Abdomen: Obese, soft, nontender. Extremities: Positive for edema. There is chronic venostasis. Dermatitis lower extremities bilaterally. No erythema or warmth. IMPRESSION: 1. Exacerbation degenerative joint disease. 2. Recent urinary tract infection. 3. History of cellulitis of the lower extremities. PLAN: At the present time, the patient is asymptomatic with respect to genitourinary complaints. Would observe off antibiotic therapy. Orthopaedics follow up. Thank you for the kind referral. JACOB IVORY M.D. [id number]
[2017-10-23] MEDS: WARFARIN NA 2 MG TABLET (UD) PO SCH (17:21)
[2017-10-23] MEDS: WARFARIN NA 2.5 MG TABLET (FP) PO SCH (17:21)
[2017-10-23] MEDS ORDERED: REFRIGERATED ANITBIOTICS ONE (21:58)
[2017-10-24] MEDS: traMADol HCL 50 MG TABLET PO SCH ×2 (00:38→06:46)
[2017-10-24] MEDS: ACETAMINOPHEN 325 MG TABLET (FP) PO SCH ×2 (00:41→06:46)
[2017-10-24] MEDS ORDERED: traMADol HCL 50 MG TABLET ONE (06:44)
[2017-10-24 07:01] VITALS: BP 136/59; PULSE 58; TEMP 97.5
--- NOTE | 2017-10-24 08:55 | DS ---
Physical Exam: SUBJECTIVE: Patient seen and examined,reports knee pain improved, no other complains. OBJECTIVE: Vital Signs Period Temp Pulse Resp BP Sys/Hair Pulse Ox Last 24 Hr 97.5 F-98.0 F 58-72 17-20 123-155/30-63 95-100 PHYSICAL EXAM GENERAL: The patient is awake, alert, and fully oriented, in no acute distress. HEAD: Normal with no signs of trauma. EYES: PERRL, extraocular movements intact, sclera anicteric, conjunctiva clear. ENT: Ears normal, nares patent, oropharynx clear without exudates, moist mucous membranes. NECK: Trachea midline, full range of motion, supple. LUNGS: Breath sounds equal, clear to auscultation bilaterally, no wheezes, no crackles, no accessory muscle use. HEART: Regular rate and rhythm, S1, S2 without murmur, rub or gallop. ABDOMEN: Soft, nontender, nonexistence, normative bowel sounds, no guarding, no rebound, no hepatosplenomegaly, no masses. EXTREMITIES: 2+ pulses, warm, well-perfused, bilateral knee swelling with limited ROM, discoloration to bilateral lower extremities (PVD) NEUROLOGICAL: Cranial nerves II through XII grossly intact. Normal speech, gait not observed. PSYCH: Normal mood, normal affect. SKIN: Warm, dry, normal turgor, no rashes or lesions noted. LABS Laboratory Results - last 24 hr 10/23/17 10/23/17 10/23/17 10:00 10:00 10:00 WBC 4.5 RBC 4.70 Hgb 13.8 Hct 40.8 MCV 86.9 MCH 29.4 MCHC 33.8 RDW 13.2 Plt Count 150 MPV 8.2 Absolute Neuts (auto) 2.7 Neutrophils % 60.4 Lymphocytes % 23.6 Monocytes % 10.2 Eosinophils % 4.7 H Basophils % 1.1 PT with INR 30.2 H INR 2.75 H Sodium 138 Potassium 4.8 Chloride 102 Carbon Dioxide 31 H Anion Gap 5 L BUN 31 H Creatinine 1.1 Creat Clearance w eGFR 47.43 Random Glucose 119 H Calcium 9.3 Phosphorus 4.3 Magnesium 2.1 HOSPITAL COURSE: Date of Admission:10/21/17 Date of Discharge: 10/24/17 The patient is a 82-year-old obese female, with a past medical history of chronic venous hypertension (idiopathic), depression, anxiety, phlebitis, DVT on Coumadin,chronic urinary tract infection (e-coli), polyneuropathy, spinal stenosis, and peptic ulcer disease. History of recently hospitalized for sepsis and cellulitis of the left lower extremity at [facility] and discharged to short-term rehabilitation at [facility]. Now presented to the ER,reports ongoing pain to the left lower extremity and the inability to ambulate. The patient was evaluated by orthopedist Dr Lorenzana and underwent injection of lidocaine and Marcaine and Toradol to left knee with pain some control. Will continue on Oxycodone Ultram and Fentanyl patch for pain. PT eval done recommend rehab,will discharge back to back to [facility]. *Chronic DVT:Will continue Coumadin home dose,INT therapeutic *chronic urinary tract infection,urinalysis no leukocytes noted,recently completed 7 days of keflex, pt was evalauted ID, rec to monitor off abx.Pt remains afebrile with no leukocytosis. Minutes to complete discharge: 40 Discharge Summary Reason For Visit: LEFT EXTREMITIES CELLULITIS Current Active Problems Leg pain (Acute) Unable to walk (Acute) Condition: Stable - Instructions Diet, Activity, Other Instructions: Followup on INR. Fall precautions. Referrals: Alfonso Lorenzana MD [Staff Physician] - 2 Weeks Snehal Rome [Non Staff, Medical] - 2 Weeks Disposition: [facility] - Home Medications Comprehensive Discharge Medication List: Ambulatory Orders Alprazolam [Xanax] 0.25 mg PO Q6H 10/21/17 Bupropion HCl [Bupropion Xl] 150 mg PO DAILY 10/21/17 Calcium Carb, Citrate/Vit D3 [Calcium + D3 ER Tablet] 1 tab PO DAILY 10/21/17 Cholecalciferol (Vitamin D3) [Vitamin D3] 5,000 unit PO DAILY 10/21/17 Cyanocobalamin [Vitamin B12 -] 100 mcg PO DAILY 10/21/17 Fexofenadine HCl 180 mg PO DAILY 10/21/17 Gabapentin 600 mg PO BID 10/21/17 Gabapentin 900 mg PO HS 10/21/17 Lactobacillus Acidophilus [Acidophilus] 1 each PO BID 10/21/17 Nystatin Powder [Nystop Powder -] 1 appful ASDIR 10/21/17 Polyethylene Glycol 3350 [Miralax 119 gm Btl -] 1 pack PO BID 10/21/17 Triamcinolone 0.5% Cream [Aristocort 0.5% Cream -] 1 appful BID 10/21/17 Warfarin Na [Coumadin -] 2 mg PO DAILY 10/21/17 Warfarin Sodium [Coumadin] 2.5 mg PO DAILY 10/21/17 oxyCODONE SR [Oxycontin] 10 mg PO BID 10/21/17 Bupropion HCl [Wellbutrin Xl -] 150 mg PO DAILY tab.sr.24h 10/24/17 Calcium (Oyster Shell) [Os-Hever 500MG -] 500 mg PO BID tablet 10/24/17 Docusate Sodium [Colace -] 100 mg PO Q8H PRN capsule 10/24/17 FENTANYL 75mcg PATCH [DURAGESIC 75mcg PATCH -] 1 patch TD Q72H patch.td72 MDD 1 10/24/17 Famotidine [Pepcid -] 20 mg PO BID tablet 10/24/17 Loratadine [Claritin -] 10 mg PO DAILY tablet 10/24/17 traMADol HCL [Ultram -] 50 mg PO Q6HPO tablet MDD 4 10/24/17 This patient is new to me today: Yes Date on this admission: 10/24/17 Emergency Visit: Yes ED Registration Date: 10/21/17 Care time: The patient presented to the Emergency Department on the above date and was hospitalized for further evaluation of their emergent condition. Critical Care patient: No - Discharge Referral Referred to [facility] Med P.C.: No
[2017-10-24] MEDS: FAMOTIDINE 20 MG TABLET PO SCH (10:05)
[2017-10-24] MEDS: GABAPENTIN 300 MG CAPSULE (FP) PO SCH (10:05)
[2017-10-24] MEDS: LORATADINE 10 MG TABLET PO SCH (10:05)
[2017-10-24] MEDS: POLYETHYLENE GLYCOL 3350 119 GM BTL PO SCH (10:05)
[2017-10-24] MEDS: LACTOBACILLUS ACIDOPHILUS 1 TABLET PO SCH (10:05)
[2017-10-24] MEDS: CALCIUM (OYSTER SHELL) 500 MG TABLET (FP) PO SCH (10:05)
[2017-10-24] MEDS: CYANOCOBALAMIN (VITAMIN B-12) 100 MCG TABLET PO SCH (10:06)
[2017-10-24] MEDS: CHOLECALCIFEROL (VITAMIN D3) 1,000 UNIT TABLET (FP) PO SCH (10:06)
[2017-10-24] MEDS: oxyCODONE HCL 5 MG TABLET PO PRN (10:06)
[2017-10-24] MEDS: NYSTATIN POWDER 100,000 UNITS/GM - 15 GM TOPICAL POWDER TP SCH (10:07)
[2017-10-24] MEDS: TRIAMCINOLONE ACET 0.5% CREAM 15 GM TUBE TP SCH (10:08)
== END 2017-10-24 11:50 ==
LOC: FER 10:48 → FM/S 12:05 → INTOOBSV 12:05 → UNDOADMOB 12:05 → FM/S 14:35
PROVIDERS: ADMIT Internal Medicine; ATTEND Nurse Practitioner Family
DX: R26.2 Difficulty in walking, not elsewhere classified (principal); M79.605 Pain in left leg; M17.0 Bilateral primary osteoarthritis of knee; I82.503 Chronic embolism and thrombosis of unspecified deep veins of lower extremity, bilateral; K27.9 Peptic ulcer, site unspecified, unspecified as acute or chronic, without hemorrhage or perforation; I10 Essential (primary) hypertension; M48.061 Spinal stenosis, lumbar region without neurogenic claudication; F32.9 Major depressive disorder, single episode, unspecified; F41.9 Anxiety disorder, unspecified; M16.12 Unilateral primary osteoarthritis, left hip; E66.01 Morbid (severe) obesity due to excess calories; Z68.43 Body mass index [BMI] 50.0-59.9, adult; Z79.01 Long term (current) use of anticoagulants; Z87.440 Personal history of urinary (tract) infections; Z88.5 Allergy status to narcotic agent; Z88.2 Allergy status to sulfonamides; Z88.1 Allergy status to other antibiotic agents
CPT/HCPCS: 36415; 71045-TC-FY; 73552-TC-LT-FY; 73562-TC-LT-FY; 73590-TC-LT-FY; 80048; 80053; 81003; 83735; 84100; 84550; 85025; 85610; 85651; 86140; 87040; 87086; 87186; 93005; 97116-GP; 97162-GP; 99284-25; G0378

== ENCOUNTER 2018-04-05 15:19 | Observation (INO) | payer OTHER ==
[2018-04-05] MEDS ORDERED: ACETAMINOPHEN 1000 MG/100 ML VIAL (NON FORMULARY) IVPB ONE (16:30)
[2018-04-05] MEDS ORDERED: ACETAMINOPHEN INJECTION 100 ML IVPB ONE (16:47)
[2018-04-05] MEDS ORDERED: ALBUTEROL SO4 2.5/IPRATROPIUM 0.5 INH SOL 3 ML VIAL.NEB. NEB ONE ×2 (16:48→17:34)
--- NOTE | 2018-04-05 16:48 | PDOC ---
History of Present Illness - General History Source: Patient Exam Limitations: No Limitations - History of Present Illness Initial Comments: 04/05/18 16:50 The patient is an 83 year old female with a significant past medical history of AFIB, Spinal stenosis, Chronic lower extremity DVT, recurrent UTI, PUD, history of smoking (quit 35 year ago) and osteoarthritis who presents to the Emergency Department, brought in by ambulance from [facility], complaining of low grade fever, low oxygen stats, chills, shortness of breath and productive cough. The patient states that caretakers at her detention were concerned that she was showing signs of sepsis and/or pneumonia. The patient reports that she is also currently being treated for a urinary tract infection. She also notes that she takes coumadin. She denies nausea, vomiting, and diarrhea. <Hosea Montemayor - Last Filed: 04/05/18 16:50> <Beverly Ibarra - Last Filed: 04/05/18 18:25> - General Chief Complaint: Respiratory Stated Complaint: COUGH Time Seen by Provider: 04/05/18 15:38 Past History <Hosea Montemayor - Last Filed: 04/05/18 16:50> - Past Medical History Cardiac Disorders: Yes (A-FIB) COPD: No GI Disorders: Yes (peptic ulcer, constipation, hemorrhoids) Disorders: Yes HTN: No (CHRONIC VENOUS STASIS) Psychiatric Problems: Yes (DEPRESSION, ANXIETY) Other medical history: MORBID OBESITY, SPINAL STENOSIS, CHRONIC KNEE PAIN, DIFFICULTY WALKING - Suicide/Smoking/Psychosocial Hx Smoking History: Former smoker Have you smoked in the past 12 months: No If you are a former smoker, when did you quit?: 1986 Information on smoking cessation initiated: No Hx Alcohol Use: No Drug/Substance Use Hx: No <Beverly Ibarra - Last Filed: 04/05/18 18:25> - Past Medical History Allergies/Adverse Reactions: Allergies Allergy/AdvReac Type Severity Reaction Status Date / Time adhesive tape Allergy Intermediate Verified 04/05/18 15:49 aspirin Allergy Intermediate Rash Verified 04/05/18 15:49 ciprofloxacin [From Cipro] Allergy Intermediate Itching Verified 04/05/18 15:49 codeine Allergy Intermediate Rash Verified 04/05/18 15:49 pineapple Allergy Intermediate Verified 04/05/18 15:49 prednisone Allergy Intermediate Rash Verified 04/05/18 15:49 Sulfa (Sulfonamide Allergy Intermediate Rash Verified 04/05/18 15:49 Antibiotics) Home Medications: Ambulatory Orders Cholecalciferol (Vitamin D3) [Vitamin D3] 5,000 unit PO DAILY 10/21/17 Fexofenadine HCl 180 mg PO DAILY 10/21/17 Gabapentin 600 mg PO BID 10/21/17 Gabapentin 900 mg PO HS 10/21/17 Lactobacillus Acidophilus [Acidophilus] 1 each PO BID 10/21/17 Polyethylene Glycol 3350 [Miralax 119 gm Btl -] 1 pack PO BID 10/21/17 Triamcinolone 0.5% Cream [Aristocort 0.5% Cream -] 1 appful TP BID 10/21/17 Warfarin Sodium [Coumadin] 2.5 mg PO DAILY 10/21/17 Bupropion HCl [Wellbutrin Xl -] 150 mg PO DAILY tab.sr.24h 10/24/17 Calcium (Oyster Shell) [Os-Hever 500MG -] 500 mg PO BID tablet 10/24/17 Acetaminophen 650 mg PO Q8H PRN 04/05/18 Cranberry Fruit Concentrate [Cran-Max] 500 mg PO DAILY 04/05/18 Diphenhydramine HCl [Benadryl -] 25 mg PO DAILY PRN 04/05/18 Docusate Sodium [Colace -] 200 mg PO DAILY PRN 04/05/18 Doxycycline Hyclate [Vibramycin] 100 mg PO BID 04/05/18 Famotidine [Pepcid -] 40 mg PO HS 04/05/18 Guaifenesin [Robitussin] 100 mg PO Q6H PRN 04/05/18 Oxycodone HCl/Acetaminophen [Percocet 5-325 mg Tablet] 2 tab PO BID 04/05/18 Oxycodone HCl/Acetaminophen [Percocet 5-325 mg Tablet] 2 tab PO Q8H PRN Phenazopyridine HCl [Pyridium] 100 mg PO TID PRN 04/05/18 Review of Systems - Review of Systems Able to Perform ROS?: Yes Comments:: 04/05/18 16:51 GENERAL/CONSTITUTIONAL: (+) Fever or chills. No weakness. HEAD, EYES, EARS, NOSE AND THROAT: No change in vision. No ear pain or discharge. No sore throat. GASTROINTESTINAL: No nausea, vomiting, diarrhea or constipation. GENITOURINARY: No dysuria, frequency, or change in urination. CARDIOVASCULAR: No chest pain RESPIRATORY: (+) Productive cough, shortness of breath. No wheezing, or hemoptysis. MUSCULOSKELETAL: No joint or muscle swelling or pain. No neck or back pain. SKIN: No rash NEUROLOGIC: No headache, vertigo, loss of consciousness, or change in strength/ sensation. ENDOCRINE: No increased thirst. No abnormal weight change. HEMATOLOGIC/LYMPHATIC: No anemia, easy bleeding, or history of blood clots. ALLERGIC/IMMUNOLOGIC: No hives or skin allergy. <Hosea Montemayor - Last Filed: 04/05/18 16:50> *Physical Exam - Vital Signs Last Vital Signs Temp Pulse Resp BP Pulse Ox 98.2 F 86 20 130/60 96 04/05/18 15:20 04/05/18 15:20 04/05/18 15:20 04/05/18 15:20 04/05/18 15:20 - Physical Exam Comments: 04/05/18 16:51 GENERAL: Awake, alert, and fully oriented, in no acute distress HEAD: No signs of trauma EYES: PERRLA, EOMI, sclera anicteric, conjunctiva clear ENT: Auricles normal inspection, nares patent, Moist mucosa NECK: Normal ROM, supple, no lymphadenopathy, JVD, or masses LUNGS: Breath sounds equal, clear to auscultation bilaterally. (+) Left lung crackles at base HEART: Regular rate and rhythm, normal S1 and S2, no murmurs, rubs or gallops ABDOMEN: (+) Obese, Soft, nontender, normoactive bowel sounds. No guarding, no rebound. No masses EXTREMITIES: Normal range of motion, no edema. No clubbing or cyanosis. No cords, erythema, or tenderness, (+) Hyperpigmentation bilaterally NEUROLOGICAL: Normal speech SKIN: Warm, Dry, normal turgor, no rashes or lesions noted. <Hosea Montemayor - Last Filed: 04/05/18 16:50> - Vital Signs Last Vital Signs Temp Pulse Resp BP Pulse Ox 98.2 F 86 20 130/60 96 04/05/18 15:20 04/05/18 15:20 04/05/18 15:20 04/05/18 15:20 04/05/18 15:20 <Beverly Ibarra - Last Filed: 04/05/18 18:25> Moderate Sedation - Procedure Monitoring Vital Signs: Procedure Monitoring Vital Signs Temperature 98.2 F 04/05/18 15:20 Pulse Rate 86 04/05/18 15:20 Respiratory Rate 20 04/05/18 15:20 Blood Pressure 130/60 04/05/18 15:20 O2 Sat by Pulse Oximetry (%) 96 04/05/18 15:20 <Hosea Montemayor - Last Filed: 04/05/18 16:50> - Procedure Monitoring Vital Signs: Procedure Monitoring Vital Signs Temperature 98.2 F 04/05/18 15:20 Pulse Rate 86 04/05/18 15:20 Respiratory Rate 20 04/05/18 15:20 Blood Pressure 130/60 04/05/18 15:20 O2 Sat by Pulse Oximetry (%) 96 04/05/18 15:20 <Beverly Ibarra - Last Filed: 04/05/18 18:25> ED Treatment Course - LABORATORY CBC & Chemistry Diagram: 04/05/18 17:00 04/05/18 17:00 - RADIOLOGY Radiology Studies Ordered: Category Date Time Status CXRPORT [CHEST X-RAY PORTABLE*] [RAD] Stat Radiology 04/05/18 15:38 Ordered <Beverly Ibarra - Last Filed: 04/05/18 18:25> Medical Decision Making - Medical Decision Making 04/05/18 16:43 83 you F with h/o afib, obesity, depression, non-ambulatory , chronic spinal stenosis, knee arthritis, chronic lower ext embolism on blood thinner (coumadin ) here wtih c/o cough, per detention report pt was febrile with low grade temp at 100.1, low oxygen sat 92 percent and has a cough. cough prodcutive clear sputum. no n/v pt does not walk due to severe arthritis in knees, obesity . was recently started on doxycycline for a UTI. started 3 days. ago. no other complaints. on exam pt awake alert lungs with crackles left base. no wheeze comfortable appearing. abd obese nt. ext with chronic nonpitt edema. skin discoloration ( hyperpigmentation ) .nuero alert oriented x 3 plan cxr r/o pna septic workup. ua r/o persistant or resistant uti. likley cover with abx. admit to [facility]. 04/05/18 17:41 pt cxr unremarkable for pna but oxygen sats 93 an fever, cough. given neb in ed. flu swab pending. labs with normal wbc. already on coumadin . InR 2.1 will admit for bronchtis, bronchospasm, pending ua for persitant uti. blood cultures pending. hospitalist paged. pt pcp at [facility] Pauly gillette. 04/05/18 18:01 pt with persistant uti despite doxycycline. review old cultures. prior ecoli and psuedomonas . sensitive to ceftriaxone. 04/05/18 18:03 pt prior psuedomonas resistant to cipro and pt allergic. will add zosyn for psuedomonas coverage. <Beverly Ibarra - Last Filed: 04/05/18 18:25> *DC/Admit/Observation/Transfer - Attestations Scribe Attestion: 04/05/18 16:51 Documentation prepared by Hosea Montemayor, acting as medical assisting instructor for Beverly Ibarra MD. <Hosea Montemayor - Last Filed: 04/05/18 16:50> - Discharge Dispostion Decision to Admit order: Yes <Beverly Ibarra - Last Filed: 04/05/18 18:25> Diagnosis at time of Disposition: Bronchitis, UTI (urinary tract infection), Hypoxia - Discharge Dispostion Condition at time of disposition: Good - Referrals Referrals: Pauly Delgado MD [Primary Care Provider] - - Patient Instructions - Post Discharge Activity
[2018-04-05 17:31] LABS: BASO % 0.8 % (0-2.0); EOS % 4.6 % (0-4.5); HEMATOCRIT 42.9 % (32.4-45.2); HEMOGLOBIN 13.5 GM/dl (10.7-15.3); LYMPH % 16.9 % (8-40); MCH 28.3 pg (25.7-33.7); MCHC 31.5 g/dl (32.0-36.0); MEAN CELL VOLUME 89.7 fl (80-96); MEAN PLT VOLUME 8.3 fl (7.5-11.1); MONO % 12.6 % (3.8-10.2); NEUT % 65.1 % (42.8-82.8); PLATELET COUNT 169 K/MM3 (134-434); RBC 4.79 M/mm3 (3.60-5.2); RDW 12.7 % (11.6-15.6)
[2018-04-05 17:32] LABS: INR 2.11 (0.82-1.09); PROTHROMBIN TIME (PATIENT) 23.3 SEC (10.2-13.0)
[2018-04-05 17:36] LABS: ALBUMIN 3.2 g/dl (3.5-5.0); ALK PHOS 94 U/L (32-92); ANION GAP 9 MMOL/L (8-16); BILIRUBIN,TOTAL 0.6 mg/dl (0.2-1.0); BLOOD UREA NITROGEN 27 mg/dl (7-18); CALCIUM 9.1 mg/dl (8.4-10.2); CHLORIDE 102 mmol/L (98-107); CO2 26 mmol/L (22-28); CREATININE 0.9 mg/dl (0.6-1.3); GLUCOSE,RANDOM 112 mg/dl (74-106); POTASSIUM 4.1 mmol/L (3.5-5.1); SGOT/AST 23 U/L (10-42); SGPT/ALT 20 U/L (10-40); SODIUM 137 mmol/L (136-145); TOT PROT 6.1 g/dl (6.4-8.3)
[2018-04-05 17:38] LABS: URINE APPEARANCE Clear; URINE BILIRUBIN 1+ (NEGATIVE); URINE COLOR Orange; URINE GLUCOSE (UA) Trace (NEGATIVE); URINE KETONE Trace (NEGATIVE); URINE LEUK ESTERASE TRACE (NEGATIVE); URINE NITRITE Positive (NEGATIVE); URINE PROTEIN 1+ (NEGATIVE)
[2018-04-05] MEDS ORDERED: CEFTRIAXONE 1,000 MG in DEXTROSE 5%-WATER - 50 ML IVPB ONE (17:44)
[2018-04-05] MEDS ORDERED: cefTRIAXone SODIUM 1 GM VIAL ONE (17:45)
[2018-04-05 17:50] LABS: EPI CELLS FEW /HPF; URINE BACTERIA 3+ /hpf (NEGATIVE); URINE WBC 20-40 (0-5)
[2018-04-05] MEDS ORDERED: PIPERACILLIN/TAZOB 3.375 GM 3.375 GM in DEXTROSE 5%-WATER - 50 ML IVPB ONE (18:03)
[2018-04-05] MEDS ORDERED: WARFARIN NA 2.5 MG TABLET (FP) PO ONE (18:30)
[2018-04-05] MEDS ORDERED: PIPERACILLIN/TAZOBACTAM 3.375 GM VIAL IVPB ONE (18:45)
[2018-04-05] MEDS ORDERED: guaiFENesin 200 MG/10 ML 10 ML UNIT-DOSE CUPS PO ONE (21:50)
[2018-04-05] MEDS ORDERED: HEPARIN NA (PORCINE) 5,000 UNITS/ML 1ML VIAL SQ SCH (22:00)
[2018-04-05 23:07] VITALS: BMI 31.8
--- NOTE | 2018-04-06 09:45 | HP ---
CHIEF COMPLAINT: Cough PCP: Antolin Lassiter Ortho: Dr. Alfonso Lorenzana HISTORY OF PRESENT ILLNESS: 83 year-old female with a PMH significant for severe DJD bilateral knees, lower extremity DVT x 2 (most recent 20 years ago), spinal stenosis, and recurrent UTIs. Patient was sent to the ED from [place] by ambulance for a cough and reported low grade fever. Records from the [place] indicate patient was started on doxycycline for a UTI on 04/02. Patient states she has been coughing. She denies fever, sweats, chills; denies nausea, vomiting, diarrhea. Patient is unable to ambulate at baseline due to severe DJD of her knees. Recent Travel: No PAST MEDICAL HISTORY: Severe DJD bilateral knees Peripheral vascular disease Lower extremity DVT Spinal stenosis Recurrent UTIs Chronic pruritis Hemorrhoids Depression Meniere's disease PAST SURGICAL HISTORY: Bladder repair Social History: Smoking: quit 35 years ago Alcohol: no Drugs: no Family History: Allergies adhesive tape Allergy (Intermediate, Verified 04/05/18 15:49) aspirin Allergy (Intermediate, Verified 04/05/18 15:49) Rash ciprofloxacin [From Cipro] Allergy (Intermediate, Verified 04/05/18 15:49) Itching codeine Allergy (Intermediate, Verified 04/05/18 15:49) Rash pineapple Allergy (Intermediate, Verified 04/05/18 15:49) prednisone Allergy (Intermediate, Verified 04/05/18 15:49) Rash Sulfa (Sulfonamide Antibiotics) Allergy (Intermediate, Verified 04/05/18 15:49) Rash HOME MEDICATIONS: Home Medications Medication Instructions Recorded Cholecalciferol (Vitamin D3) 5,000 unit PO DAILY 10/21/17 [Vitamin D3] Fexofenadine HCl 180 mg PO DAILY 10/21/17 Gabapentin 600 mg PO BID 10/21/17 Gabapentin 900 mg PO HS 10/21/17 Lactobacillus Acidophilus 1 each PO BID 10/21/17 [Acidophilus] Polyethylene Glycol 3350 [Miralax 1 pack PO BID 10/21/17 119 gm Btl -] Triamcinolone 0.5% Cream 1 appful TP BID 10/21/17 [Aristocort 0.5% Cream -] Warfarin Sodium [Coumadin] 2.5 mg PO DAILY 10/21/17 Bupropion HCl [Wellbutrin Xl -] 150 mg PO DAILY tab.sr.24h 10/24/17 Calcium (Oyster Shell) [Os-Hever 500 mg PO BID tablet 10/24/17 500MG -] Acetaminophen 650 mg PO Q8H PRN 04/05/18 Cranberry Fruit Concentrate 500 mg PO DAILY 04/05/18 [Cran-Max] Diphenhydramine HCl [Benadryl -] 25 mg PO DAILY PRN 04/05/18 Docusate Sodium [Colace -] 200 mg PO DAILY PRN 04/05/18 Doxycycline Hyclate [Vibramycin] 100 mg PO BID 04/05/18 Famotidine [Pepcid -] 40 mg PO HS 04/05/18 Guaifenesin [Robitussin] 100 mg PO Q6H PRN 04/05/18 Oxycodone HCl/Acetaminophen 2 tab PO BID 04/05/18 [Percocet 5-325 mg Tablet] Oxycodone HCl/Acetaminophen 2 tab PO Q8H PRN 04/05/18 [Percocet 5-325 mg Tablet] Phenazopyridine HCl [Pyridium] 100 mg PO TID PRN 04/05/18 REVIEW OF SYSTEMS CONSTITUTIONAL: Absent: fever, chills, diaphoresis, generalized weakness, malaise, loss of appetite, weight change HEENT: Absent: rhinorrhea, nasal congestion, throat pain, throat swelling, difficulty swallowing, mouth swelling, ear pain, eye pain, visual changes CARDIOVASCULAR: Absent: chest pain, syncope, palpitations, irregular heart rate, lightheadedness , peripheral edema RESPIRATORY: +cough Absent: cough, shortness of breath, dyspnea with exertion, orthopnea, wheezing, stridor, hemoptysis GASTROINTESTINAL: Absent: abdominal pain, abdominal distension, nausea, vomiting, diarrhea, constipation, melena, hematochezia GENITOURINARY: Absent: dysuria, frequency, urgency, hesitancy, hematuria, flank pain, genital pain MUSCULOSKELETAL: Absent: myalgia, arthralgia, joint swelling, back pain, neck pain SKIN: Absent: rash, itching, pallor HEMATOLOGIC/IMMUNOLOGIC: Absent: easy bleeding, easy bruising, lymphadenopathy, frequent infections ENDOCRINE: Absent: unexplained weight gain, unexplained weight loss, heat intolerance, cold intolerance NEUROLOGIC: Absent: headache, focal weakness or paresthesias, dizziness, unsteady gait, seizure, mental status changes, bladder or bowel incontinence PSYCHIATRIC: Absent: anxiety, depression, suicidal or homicidal ideation, hallucinations. PHYSICAL EXAMINATION Vital Signs - 24 hr 04/05/18 04/05/18 04/05/18 15:20 17:00 17:15 Temperature 98.2 F 98.2 F Pulse Rate 86 78 Pulse Rate [ 77 Apical] Respiratory 20 20 Rate Blood Pressure 130/60 Blood Pressure 129/62 [Left Arm] O2 Sat by Pulse 96 92 L 93 L Oximetry (%) GENERAL: Awake, alert, and fully oriented, in no acute distress. HEAD: Normal with no signs of trauma. EYES: Pupils equal, round and reactive to light, extraocular movements intact, sclera anicteric, conjunctiva clear. No lid lag. EARS, NOSE, THROAT: Ears normal, nares patent, oropharynx clear without exudates. Moist mucous membranes. NECK: Normal range of motion, supple without lymphadenopathy, JVD, or masses. LUNGS: Breath sounds equal, clear to auscultation bilaterally. No wheezes, and no crackles. No accessory muscle use. HEART: Regular rate and rhythm, normal S1 and S2 ABDOMEN: Soft, nontender, not distended, obese UPPER EXTREMITIES: 2+ pulses, warm, well-perfused. No cyanosis. No clubbing. No peripheral edema. LOWER EXTREMITIES: 2+ pulses, warm, well-perfused. No calf tenderness. Extensive venous stasis changes bilaterally. NEUROLOGICAL: Cranial nerves II-XII intact. Normal speech. Laboratory Results - last 24 hr 04/05/18 04/05/18 04/05/18 17:00 17:00 17:00 WBC 5.0 RBC 4.79 Hgb 13.5 Hct 42.9 MCV 89.7 MCH 28.3 MCHC 31.5 L RDW 12.7 Plt Count 169 MPV 8.3 Absolute Neuts (auto) 3.4 Neutrophils % 65.1 Lymphocytes % 16.9 Monocytes % 12.6 H Eosinophils % 4.6 H Basophils % 0.8 PT with INR INR Sodium 137 Potassium 4.1 Chloride 102 Carbon Dioxide 26 Anion Gap 9 BUN 27 H Creatinine 0.9 Creat Clearance w eGFR 59.65 Random Glucose 112 H Lactic Acid Calcium 9.1 Total Bilirubin 0.6 AST 23 ALT 20 D Alkaline Phosphatase 94 H Troponin I < 0.03 Total Protein 6.1 L Albumin 3.2 L Urine Color Urine Appearance Urine pH Ur Specific [place] Urine Protein Urine Glucose (UA) Urine Ketones Urine Blood Urine Nitrite Urine Bilirubin Urine Urobilinogen Ur Leukocyte Esterase Urine RBC Urine WBC Ur Epithelial Cells Urine Bacteria Influenza A (Rapid) Influenza B (Rapid) 04/05/18 04/05/18 04/05/18 17:00 17:00 17:15 WBC RBC Hgb Hct MCV MCH MCHC RDW Plt Count MPV Absolute Neuts (auto) Neutrophils % Lymphocytes % Monocytes % Eosinophils % Basophils % PT with INR 23.3 H INR 2.11 H Sodium Potassium Chloride Carbon Dioxide Anion Gap BUN Creatinine Creat Clearance w eGFR Random Glucose Lactic Acid 1.4 Calcium Total Bilirubin AST ALT Alkaline Phosphatase Troponin I Total Protein Albumin Urine Color Urine Appearance Urine pH Ur Specific [place] Urine Protein Urine Glucose (UA) Urine Ketones Urine Blood Urine Nitrite Urine Bilirubin Urine Urobilinogen Ur Leukocyte Esterase Urine RBC Urine WBC Ur Epithelial Cells Urine Bacteria Influenza A (Rapid) Negative Influenza B (Rapid) Negative 04/05/18 17:20 WBC RBC Hgb Hct MCV MCH MCHC RDW Plt Count MPV Absolute Neuts (auto) Neutrophils % Lymphocytes % Monocytes % Eosinophils % Basophils % PT with INR INR Sodium Potassium Chloride Carbon Dioxide Anion Gap BUN Creatinine Creat Clearance w eGFR Random Glucose Lactic Acid Calcium Total Bilirubin AST ALT Alkaline Phosphatase Troponin I Total Protein Albumin Urine Color [place] Urine Appearance Clear Urine pH 5.0 Ur Specific [place] 1.025 Urine Protein 1+ H Urine Glucose (UA) Trace Urine Ketones Trace Urine Blood 1+ H Urine Nitrite Positive Urine Bilirubin 1+ H Urine Urobilinogen 1.0 Ur Leukocyte Esterase Trace H Urine RBC 10-20 Urine WBC 20-40 Ur Epithelial Cells Few Urine Bacteria 3+ Influenza A (Rapid) Influenza B (Rapid) ASSESSMENT/PLAN 83 year-old female with a PMH significant for afib on warfain, severe DJD bilateral knees, lower extremity DVT, spinal stenosis, and recurrent UTIs. Cough --afebrile, no leukocytosis, CXR clear --duonebs TID --observe off antibiotics --former smoker, recommend outpatient pulmonary workup UTI --UA pyuria --was started on abx in [place] on 04/02 for UTI --ceftriaxone (day #2) Atrial fibrillation?? --14 years ago had a panic attack, and there was a suspicion for afib but patient says never diagnosed --ECG: sinus rhythm --telemetry monitoring --daily ECGs --continue warfarin, INR is therapeutic Recurrent DVTs --first DVT x 24 years ago, second DVT x 20 years ago, none since; never had a filter --continue warfarin for now Severe DJD bilateral knees --unable to weight bear or ambulate, bedbound --consult placed for Dr. Salomón Berumen --continue Wellbutrin XL FEN Fluids: PO intake adequate Electrolytes: replete as indicated Nutrition: low fat heart healthy diet DVT prophylaxis: on warfarin, INR therapeutic Physical therapy Dispo: continues to require inpatient care. Visit type - Emergency Visit Emergency Visit: Yes ED Registration Date: 04/05/18 Care time: The patient presented to the Emergency Department on the above date and was hospitalized for further evaluation of their emergent condition. - New Patient This patient is new to me today: Yes Date on this admission: 04/06/18 - Critical Care Critical Care patient: No
[2018-04-06] MEDS ORDERED: DOCUSATE SODIUM 100 MG CAPSULE (FP) PO PRN (09:46)
[2018-04-06] MEDS ORDERED: ACETAMINOPHEN 325 MG TABLET (FP) PO PRN ×2 (09:46→09:54)
[2018-04-06 09:56] LABS: ANION GAP 7 MMOL/L (8-16); BLOOD UREA NITROGEN 21 mg/dl (7-18); CALCIUM 8.9 mg/dl (8.4-10.2); CHLORIDE 104 mmol/L (98-107); CO2 25 mmol/L (22-28); CREATININE 0.8 mg/dl (0.6-1.3); GLUCOSE,RANDOM 105 mg/dl (74-106); MAGNESIUM 1.8 mg/dL (1.8-2.4); PHOSPHOROUS 2.8 mg/dl (2.5-4.6); POTASSIUM 4.2 mmol/L (3.5-5.1); SODIUM 136 mmol/L (136-145)
[2018-04-06 10:07] LABS: BASO % 0.7 % (0-2.0); EOS % 4.5 % (0-4.5); HEMATOCRIT 39.5 % (32.4-45.2); HEMOGLOBIN 13.4 GM/dl (10.7-15.3); LYMPH % 14.5 % (8-40); MCH 29.9 pg (25.7-33.7); MCHC 33.8 g/dl (32.0-36.0); MEAN CELL VOLUME 88.5 fl (80-96); MEAN PLT VOLUME 8.7 fl (7.5-11.1); MONO % 13.6 % (3.8-10.2); NEUT % 66.7 % (42.8-82.8); PLATELET COUNT 155 K/MM3 (134-434); RBC 4.47 M/mm3 (3.60-5.2); RDW 12.5 % (11.6-15.6); WHITE BLOOD COUNT 5.6 K/mm3 (4.0-10.8)
[2018-04-06] MEDS: CEFTRIAXONE 1 G/50 ML PREMIX 50 ML IVPB SCH (10:10)
[2018-04-06] MEDS: POLYETHYLENE GLYCOL 3350 119 GM BTL PO SCH (10:10)
[2018-04-06] MEDS: GABAPENTIN 300 MG CAPSULE (FP) PO SCH ×2 (10:39→21:39)
[2018-04-06] MEDS: ALBUTEROL SO4 2.5/IPRATROPIUM 0.5 INH SOL 3 ML VIAL.NEB. NEB SCH ×2 (16:31→21:40)
[2018-04-06] MEDS ORDERED: WARFARIN NA 2.5 MG TABLET (FP) PO SCH (18:00)
[2018-04-06] MEDS ORDERED: FAMOTIDINE 20 MG TABLET PO SCH (22:00)
[2018-04-06] MEDS ORDERED: GABAPENTIN 300 MG CAPSULE (FP) PO SCH (22:00)
[2018-04-07 07:56] LABS: INR 1.9 (0.82-1.09)
[2018-04-07] MEDS: ALBUTEROL SO4 2.5/IPRATROPIUM 0.5 INH SOL 3 ML VIAL.NEB. NEB SCH (08:21)
[2018-04-07] MEDS: POLYETHYLENE GLYCOL 3350 119 GM BTL PO SCH (09:21)
[2018-04-07] MEDS: GABAPENTIN 300 MG CAPSULE (FP) PO SCH (09:22)
[2018-04-07] MEDS: CEFTRIAXONE 1 G/50 ML PREMIX 50 ML IVPB SCH (09:22)
--- NOTE | 2018-04-07 10:52 | DS ---
Physical Exam: SUBJECTIVE: Patient seen and examined. OBJECTIVE: Vital Signs Period Temp Pulse Resp BP Sys/Hair Pulse Ox Last 24 Hr 97.5 F-99.0 F 87-93 18-20 120-157/46-89 93-93 PHYSICAL EXAM GENERAL: The patient is awake, alert, and fully oriented, in no acute distress. Morbidly obese. LUNGS: Breath sounds equal, clear to auscultation bilaterally, no wheezes, no crackles, no accessory muscle use. HEART: Regular rate and rhythm, S1, S2 ABDOMEN: Soft, nontender, nondistended, normoactive bowel sounds, no guarding, no rebound, no hepatosplenomegaly, no masses. EXTREMITIES: 2+ pulses, warm, well-perfused, no edema. UPPER EXTREMITIES: 2+ pulses, warm, well-perfused. No cyanosis. No clubbing. No peripheral edema. LOWER EXTREMITIES: 2+ pulses, warm, well-perfused. No calf tenderness. Extensive venous stasis changes bilaterally. NEUROLOGICAL: Cranial nerves II-XII intact. Normal speech. LABS CBCD WBC 5.6 K/mm3 (4.0-10.8) 04/06/18 08:30 RBC 4.47 M/mm3 (3.60-5.2) 04/06/18 08:30 Hgb 13.4 GM/dl (10.7-15.3) 04/06/18 08:30 Hct 39.5 % (32.4-45.2) 04/06/18 08:30 MCV 88.5 fl (80-96) 04/06/18 08:30 MCHC 33.8 g/dl (32.0-36.0) 04/06/18 08:30 RDW 12.5 % (11.6-15.6) 04/06/18 08:30 Plt Count 155 K/MM3 (134-434) 04/06/18 08:30 MPV 8.7 fl (7.5-11.1) 04/06/18 08:30 CMP Sodium 136 mmol/L (136-145) 04/06/18 08:30 Potassium 4.2 mmol/L (3.5-5.1) 04/06/18 08:30 Chloride 104 mmol/L (98-107) 04/06/18 08:30 Carbon Dioxide 25 mmol/L (22-28) 04/06/18 08:30 Anion Gap 7 MMOL/L (8-16) L 04/06/18 08:30 BUN 21 mg/dl (7-18) H 04/06/18 08:30 Creatinine 0.8 mg/dl (0.6-1.3) 04/06/18 08:30 Creat Clearance w eGFR > 60 (>60) 04/06/18 08:30 Calcium 8.9 mg/dl (8.4-10.2) 04/06/18 08:30 Total Bilirubin 0.6 mg/dl (0.2-1.0) 04/05/18 17:00 AST 23 U/L (10-42) 04/05/18 17:00 ALT 20 U/L (10-40) D 04/05/18 17:00 Alkaline Phosphatase 94 U/L (32-92) H 04/05/18 17:00 Total Protein 6.1 g/dl (6.4-8.3) L 04/05/18 17:00 Albumin 3.2 g/dl (3.5-5.0) L 04/05/18 17:00 HOSPITAL COURSE: Date of Admission:04/05/18 Date of Discharge: 04/07/18 Pre hospital course 83 year-old female with a PMH significant for severe DJD bilateral knees, lower extremity DVT x 2 (most recent 20 years ago), spinal stenosis, and recurrent UTIs. Patient was sent to the ED from [place] by ambulance for a cough and reported low grade fever. Records from the [place] indicate patient was started on doxycycline for a UTI on 04/02. Patient states she has been coughing. She denies fever, sweats, chills; denies nausea, vomiting, diarrhea. Patient is unable to ambulate at baseline due to severe DJD of her knees. Hospital course by problem list Cough --afebrile, no leukocytosis, CXR clear --treated with duonebs TID --observed off antibiotics --former smoker, recommend outpatient pulmonary workup to assess for COPD Proteus UTI --was started on abx in [place] on 04/02 for UTI --treated with ceftriaxone x 3 days; discharged on cefuroxime for an additional 7 days of treatment Atrial fibrillation ruled/out --14 years ago had a panic attack, and there was a suspicion for afib but patient says never diagnosed; daughter Katharine Estrada confirms patient has never had atrial fibrillation --ECG: sinus rhythm Recurrent DVTs --first DVT x 24 years ago, second DVT x 20 years ago, none since; never had a filter --warfarin was continued, INR was therapeutic Severe DJD bilateral knees --unable to weight bear or ambulate, bedbound Depression --continued Wellbutrin XL Minutes to complete discharge: 35 Discharge Summary Reason For Visit: UTI BRONCHITIS Current Active Problems Bronchitis (Acute) Hypoxia (Acute) UTI (urinary tract infection) (Acute) Condition: Stable - Instructions Diet, Activity, Other Instructions: Patient has been diagnosed with a Proteus species UTI. She should be treated with cefuroxime 250mg BID x 7 days. First dose should be given on 04/08/18. Referrals: Miguel Angel Mares MD [Staff Physician] - Disposition: [facility] FACILITY - Home Medications Comprehensive Discharge Medication List: Ambulatory Orders Cholecalciferol (Vitamin D3) [Vitamin D3] 5,000 unit PO DAILY 10/21/17 Fexofenadine HCl 180 mg PO DAILY 10/21/17 Gabapentin 600 mg PO BID 10/21/17 Gabapentin 900 mg PO HS 10/21/17 Lactobacillus Acidophilus [Acidophilus] 1 each PO BID 10/21/17 Polyethylene Glycol 3350 [Miralax 119 gm Btl -] 1 pack PO BID 10/21/17 Triamcinolone 0.5% Cream [Aristocort 0.5% Cream -] 1 appful TP BID 10/21/17 Warfarin Sodium [Coumadin] 2.5 mg PO DAILY 10/21/17 Bupropion HCl [Wellbutrin Xl -] 150 mg PO DAILY tab.sr.24h 10/24/17 Calcium (Oyster Shell) [Os-Hever 500MG -] 500 mg PO BID tablet 10/24/17 Acetaminophen 650 mg PO Q8H PRN 04/05/18 Cranberry Fruit Concentrate [Cran-Max] 500 mg PO DAILY 04/05/18 Diphenhydramine HCl [Benadryl Capsule -] 25 mg PO DAILY PRN 04/05/18 Docusate Sodium [Colace -] 200 mg PO DAILY PRN 04/05/18 Famotidine [Pepcid -] 40 mg PO HS 04/05/18 Guaifenesin [Robitussin -] 100 mg PO Q6H PRN 04/05/18 Oxycodone HCl/Acetaminophen [Percocet 5-325 mg Tablet] 2 tab PO BID 04/05/18 Oxycodone HCl/Acetaminophen [Percocet 5-325 mg Tablet] 2 tab PO Q8H PRN Cefuroxime Axetil [Cefuroxime] 250 mg PO BID #14 tablet 04/07/18 This patient is new to me today: No Emergency Visit: Yes ED Registration Date: 04/05/18 Care time: The patient presented to the Emergency Department on the above date and was hospitalized for further evaluation of their emergent condition. Critical Care patient: No - Discharge Referral Referred to [facility] No
[2018-04-07 12:51] VITALS: BP 115/50; PULSE 66; TEMP 98
--- NOTE | 2018-04-07 19:06 | EKG ---
Test Reason : Blood Pressure : / mmHG Vent. Rate : 079 BPM Atrial Rate : 079 BPM P-R Int : 180 ms QRS Dur : 098 ms QT Int : 406 ms P-R-T Axes : 028 -01 054 degrees QTc Int : 465 ms NORMAL SINUS RHYTHM NORMAL ECG WHEN COMPARED WITH ECG OF 21-OCT-2017 12:19, NO SIGNIFICANT CHANGE WAS FOUND Confirmed by JUAREZ DAVIS MD ([id number]) on 04/07/2018 7:06:23 PM Referred By: Yevgeniy FIGUEROA Confirmed By:JUAREZ DAVIS MD
== END 2018-04-07 13:48 ==
LOC: FER 15:19 → FM/S 19:26
PROVIDERS: ADMIT Internal Medicine; ATTEND Nurse Practitioner Acute Care
PROC: 3E03329 Introduction of Other Anti-infective into Peripheral Vein, Percutaneous Approach (ICD-10-PCS; principal; 2018-04-05)
PROC: 3E033NZ Introduction of Analgesics, Hypnotics, Sedatives into Peripheral Vein, Percutaneous Approach (ICD-10-PCS; 2018-04-05)
PROC: 3E0F7GC Introduction of Other Therapeutic Substance into Respiratory Tract, Via Natural or Artificial Opening (ICD-10-PCS; 2018-04-05)
DX: J20.9 Acute bronchitis, unspecified (principal); N39.0 Urinary tract infection, site not specified; R09.02 Hypoxemia; I48.91 Unspecified atrial fibrillation; F32.9 Major depressive disorder, single episode, unspecified; R05 Cough; M48.00 Spinal stenosis, site unspecified; M19.90 Unspecified osteoarthritis, unspecified site; E66.01 Morbid (severe) obesity due to excess calories; Z68.42 Body mass index [BMI] 45.0-49.9, adult; Z79.01 Long term (current) use of anticoagulants; Z87.891 Personal history of nicotine dependence; Z86.718 Personal history of other venous thrombosis and embolism; Z87.440 Personal history of urinary (tract) infections; Z85.6 Personal history of leukemia; Z88.2 Allergy status to sulfonamides; Z88.8 Allergy status to other drugs, medicaments and biological substances
CPT/HCPCS: 36415; 71045-TC-FY; 80048; 80053; 81003; 81015; 83605; 83735; 84100; 84484; 85025; 85610; 87040; 87086; 87186; 87804; 93005; 94640; 96365; 96367; 96375; 97161-GP; 99283-25; G0378; J0131